=== PATIENT | female | born 1960 | race Caucasian/White ===

== ENCOUNTER 2023-10-20 03:41 | Emergency (ER) | payer SELFPAY ==
[~2023-10-20] VITALS: Ht 165.1 cm; Wt 82.0 kg
[2023-10-20 03:57] VITALS: TEMP 98; O2SAT 98
[2023-10-20] MEDS ORDERED: IBUPROFEN 600MG TABLET PO ONE (05:45)
[2023-10-20] MEDS ORDERED: METHOCARBAMOL 500MG TABLET PO ONE (05:45)
[2023-10-20] MEDS ORDERED: METH-653 MT (06:46)
[2023-10-20] MEDS ORDERED: IBUP-2029 MT (06:46)
[2023-10-20 07:30] VITALS: BP 145/75; PULSE 99; RESP 20
== END 2023-10-20 07:59 | disposition home or self-care (01) ==
LOC: ER 03:41
DX: R07.89 Other chest pain (principal); V49.49XA Driver injured in collision with other motor vehicles in traffic accident, initial encounter; Y93.89 Activity, other specified; Y92.89 Other specified places as the place of occurrence of the external cause; Y99.8 Other external cause status
CPT/HCPCS: 71045; 93005; 99283